=== PATIENT | male | born 1960 | race Caucasian/White ===

== ENCOUNTER → 2017-01-02 | Outpatient (CLI) | payer OTHER | LOC: RAD 15:48 | DX: R20.2 Paresthesia of skin (principal) ==

== ENCOUNTER → 2017-01-17 | Outpatient (CLI) | payer OTHER | LOC: RAD 08:56 | DX: R09.89 Other specified symptoms and signs involving the circulatory and respiratory systems (principal); I65.29 Occlusion and stenosis of unspecified carotid artery; Z72.0 Tobacco use; I10 Essential (primary) hypertension ==

== ENCOUNTER → 2017-01-21 | Outpatient (CLI) | payer OTHER | LOC: RAD 16:02 | DX: I65.29 Occlusion and stenosis of unspecified carotid artery (principal); I65.21 Occlusion and stenosis of right carotid artery; R59.0 Localized enlarged lymph nodes | CPT/HCPCS: Q9967 ==

== ENCOUNTER 2017-01-30 08:21 | Emergency (ER) | payer OTHER ==
[2017-01-30 10:35] VITALS: BP 167/85
== END 2017-01-30 10:24 | disposition short-term general hospital (02) ==
LOC: ED 08:21
DX: I63.9 Cerebral infarction, unspecified (principal); G45.9 Transient cerebral ischemic attack, unspecified; R47.81 Slurred speech; R29.810 Facial weakness; I10 Essential (primary) hypertension; I65.23 Occlusion and stenosis of bilateral carotid arteries
CPT/HCPCS: J7030

== ENCOUNTER 2017-02-20 14:03 | Outpatient (RCR) | payer OTHER | END 2017-03-18 13:12 | disposition home or self-care (01) | LOC: SPEECH 14:03 | DX: R47.1 Dysarthria and anarthria (principal); R29.818 Other symptoms and signs involving the nervous system; I63.9 Cerebral infarction, unspecified ==

== ENCOUNTER → 2017-05-02 | Outpatient (CLI) | payer OTHER | LOC: LAB 08:14 | DX: R09.89 Other specified symptoms and signs involving the circulatory and respiratory systems (principal); R53.83 Other fatigue; I10 Essential (primary) hypertension ==

== ENCOUNTER 2017-05-21 09:00 | Outpatient (RCR) | payer OTHER | END 2017-07-17 17:49 | disposition home or self-care (01) | LOC: PT 09:00 | DX: I10 Essential (primary) hypertension (principal); I63.9 Cerebral infarction, unspecified; Z72.0 Tobacco use ==

== ENCOUNTER 2019-12-23 17:55 | Emergency (ER) | payer OTHER ==
[2019-12-23] MEDS ORDERED: CARVEDILOL3.125 MG PO (18:07)
[2019-12-23] MEDS ORDERED: ATORVASTATIN CA80 MG PO (18:07)
[2019-12-23 21:45] VITALS: BP 162/90
== END 2019-12-23 21:45 | disposition home or self-care (01) ==
LOC: ED 17:55
DX: T17.228A Food in pharynx causing other injury, initial encounter (principal); R13.10 Dysphagia, unspecified; E78.5 Hyperlipidemia, unspecified; I10 Essential (primary) hypertension; I65.23 Occlusion and stenosis of bilateral carotid arteries; F17.210 Nicotine dependence, cigarettes, uncomplicated; Z86.73 Personal history of transient ischemic attack (TIA), and cerebral infarction without residual deficits
CPT/HCPCS: J1610

== ENCOUNTER → 2020-03-17 | Outpatient (CLI) | payer OTHER ==
[~2020-03-17] MED LIST: ATORVASTATIN CA80 MG PO; CARVEDILOL3.125 MG PO
== END ==
LOC: RAD 09:00
DX: I65.23 Occlusion and stenosis of bilateral carotid arteries (principal); Z98.890 Other specified postprocedural states

== ENCOUNTER → 2021-04-02 | Outpatient (CLI) | payer OTHER | LOC: RAD 13:00 | DX: I65.23 Occlusion and stenosis of bilateral carotid arteries (principal); Z86.73 Personal history of transient ischemic attack (TIA), and cerebral infarction without residual deficits ==

== ENCOUNTER → 2022-06-28 | Outpatient (CLI) | payer OTHER | LOC: VAS 08:59 → RAD 09:00 | DX: Z86.73 Personal history of transient ischemic attack (TIA), and cerebral infarction without residual deficits (principal) ==

== ENCOUNTER → 2023-12-10 | Outpatient (CLI) | payer OTHER | LOC: RAD 10:31 | DX: N28.1 Cyst of kidney, acquired (principal) ==

== ENCOUNTER → 2024-06-16 | Outpatient (CLI) | payer OTHER | LOC: RAD 07:34 | DX: S92.351A Displaced fracture of fifth metatarsal bone, right foot, initial encounter for closed fracture (principal); M25.551 Pain in right hip; X58.XXXA Exposure to other specified factors, initial encounter ==

== ENCOUNTER → 2024-07-29 | Outpatient (CLI) | payer OTHER ==
[~2024-07-29] MED LIST changes: +Gadoterate 20 ML VIAL IV ONE
== END ==
LOC: RAD 09:29
DX: R41.3 Other amnesia (principal)
CPT/HCPCS: A9575